=== PATIENT | female | born 1945 | race Caucasian/White ===

== ENCOUNTER 2018-02-16 20:34 | Emergency (ER) | payer OTHER, MEDICAID ==
--- NOTE | 2018-02-16 21:00 | ED Physician Chart ---
ED Chief Complaint/HPI - Patient Information Date Seen:: 02/16/18 Time Seen:: 21:00 Chief Complaint:: Chest pain History of Present Illness:: 73 yo female had history of hypertension and hyperlipidemia, previous episodes of mid chest pain with most recent episode occurred 15 days ago. Patient had mostly seen her primary care physician for chest pain. Patient saw a pile driver engineer for the chest pain a year ago but no stress test was done. About 2 hours prior to this ER visit, patient developed left chest pain when watching TV. Patient also felt chest pressure and shortness of breath. Patient was brought by daughter to [facility] ER. On arrival, patient had chest pain (11/16) in an intermittent mild chest jolting fashion. Patient stated that the chest pain also radiated to left neck and left shoulder. Patient had history of being non-compliant with medication. Allergies:: Allergies Allergy/AdvReac Type Severity Reaction Status Date / Time No Known Allergies Allergy Verified 02/16/18 20:46 Vitals:: Vital Signs - 8 hr 02/16/18 20:35 Temp 97.9 F HR 84 RR 18 BP 132/83 O2 Sat % 99 ED Review of Systems - Review of Systems General/Constitutional: Fever, No chills Skin: No rash Head: Headache Eyes: No pain ENT: No nasal drainage Neck: Neck pain Cardio Vascular: Chest pain, Palpitations Pulmonary: SOB GI: Nausea, No vomiting Musculoskeletal: Bone or joint pain Neurological: No syncope, No focal symptoms, Dizziness ED Past Medical History - Past Medical History Past Medical History: HTN, DM, Dyslipidemia Social History: Non Smoker, No Alcohol, No Drug Use Surgical History: Appendectomy Family Medical History - Family Member Mother History Unknown: Yes Ethnicity: ED Physical Exam - Physical Examination General/Constitutional: Awake, Alert Head: Atraumatic Eyes: PERRL, EOMI Skin: No skin lesions ENMT: Nasal exam nl Neck: No nuchal rigidity Respiratory: Clear to Auscultation, No Wheeze/Rhonchi/Rales Cardio Vascular: RRR, No murmur, gallop, rubs, NL S1 S2 GI: No tenderness/rebounding/guarding Extremities: normal strength in all extremities Neuro/Psych: No focal deficits ED Labs/Radiology/EKG Results - Lab Results Results: Laboratory Last Values WBC 6.3 Th/cmm (4.8-10.8) 02/16/18 20:45 RBC 5.24 Mil/cmm (3.80-5.20) H 02/16/18 20:45 Hgb 14.3 gm/dL (12-16) 02/16/18 20:45 Hct 43.3 % (41.0-60) 02/16/18 20:45 MCV 82.6 fl (81-100) 02/16/18 20:45 MCH 27.3 pg (27.0-31.0) 02/16/18 20:45 MCHC Differential 33.1 pg (28.0-36.0) 02/16/18 20:45 RDW 13.4 % (11.5-20.0) 02/16/18 20:45 Plt Count 220 Th/cmm (150-400) 02/16/18 20:45 MPV 10.6 fl 02/16/18 20:45 Neutrophils % 65.5 % (40.0-80.0) 02/16/18 20:45 Lymphocytes % 28.3 % (20.0-50.0) 02/16/18 20:45 Monocytes % 4.9 % (2.0-10.0) 02/16/18 20:45 Eosinophils % 0.8 % (0.0-5.0) 02/16/18 20:45 Basophils % 0.5 % (0.0-2.0) 02/16/18 20:45 PT 9.3 SECONDS (9.5-11.5) L 02/17/18 00:40 INR 0.88 (0.5-1.4) 02/17/18 00:40 PTT (Actin FS) 25.9 SECONDS (26.0-38.0) L 02/17/18 00:40 D-Dimer < 100 ng/mL (100-400) L 02/17/18 00:40 Sodium 131 mEq/L (136-145) L 02/16/18 20:45 Potassium 4.1 mEq/L (3.5-5.1) 02/16/18 20:45 Chloride 98 mEq/L (98-107) 02/16/18 20:45 Carbon Dioxide 21.0 mEq/L (21.0-31.0) 02/16/18 20:45 Anion Gap 16.1 (7.0-16.0) H 02/16/18 20:45 BUN 13 mg/dL (7-25) 02/16/18 20:45 Creatinine 0.8 mg/dL (0.6-1.2) 02/16/18 20:45 Est GFR ( Amer) TNP 02/16/18 20:45 Est GFR (Non-Af Amer) TNP 02/16/18 20:45 BUN/Creatinine Ratio 16.3 02/16/18 20:45 Glucose 565 mg/dL (70-105) H* 02/16/18 20:45 POC Glucose 391 MG/DL (70 - 105) H 02/16/18 22:18 Calcium 9.3 mg/dL (8.6-10.3) 02/16/18 20:45 Total Bilirubin 0.3 mg/dL (0.3-1.0) 02/16/18 20:45 AST 12 U/L (13-39) L 02/16/18 20:45 ALT 16 U/L (7-52) 02/16/18 20:45 Alkaline Phosphatase 106 U/L (34-104) H 02/16/18 20:45 Creatine Kinase 75 U/L (30-223) 02/16/18 20:45 Troponin I < 0.01 ng/mL (0.01-0.05) L 02/17/18 01:45 B-Natriuretic Peptide 7.3 pg/mL (5.0-100.0) 02/16/18 22:30 Total Protein 7.0 gm/dL (6.0-8.3) 02/16/18 20:45 Albumin 4.0 gm/dL (3.7-5.3) 02/16/18 20:45 Globulin 3.0 gm/dL 02/16/18 20:45 Albumin/Globulin Ratio 1.3 (1.0-1.8) 02/16/18 20:45 Triglycerides 793 mg/dL (<150) H 02/16/18 20:45 Cholesterol 216 mg/dL (<200) H 02/16/18 20:45 LDL Cholesterol Direct 88 mg/dL (75-193) 02/16/18 20:45 HDL Cholesterol 32 mg/dL (23-92) 02/16/18 20:45 Urine Source CLEAN C 02/16/18 23:18 Urine Color YELLOW 02/16/18 23:18 Urine Clarity CLEAR (CLEAR) 02/16/18 23:18 Urine pH 6.0 (4.6 - 8.0) 02/16/18 23:18 Ur Specific [place] <= 1.005 (1.005-1.030) 02/16/18 23:18 Urine Protein NEGATIVE mg/dL (NEGATIVE) 02/16/18 23:18 Urine Glucose (UA) >=1000 mg/dL (NEGATIVE) H 02/16/18 23:18 Urine Ketones NEGATIVE mg/dL (NEGATIVE) 02/16/18 23:18 Urine Blood NEGATIVE (NEGATIVE) 02/16/18 23:18 Urine Nitrate NEGATIVE (NEGATIVE) 02/16/18 23:18 Urine Bilirubin NEGATIVE (NEGATIVE) 02/16/18 23:18 Urine Urobilinogen 0.2 E.U./dL (0.2 - 1.0) 02/16/18 23:18 Ur Leukocyte Esterase NEGATIVE (NEGATIVE) 02/16/18 23:18 Urine RBC 0-2 /hpf (0-5) 02/16/18 23:18 Urine WBC 0-2 /hpf (0-5) 02/16/18 23:18 Ur Epithelial Cells OCCASIONAL /lpf (FEW) 02/16/18 23:18 Urine Bacteria OCCASIONAL /hpf (NONE SEEN) 02/16/18 23:18 - Radiology Results Results: CXR: no cardiomegaly, no focal consolidation, interpreted by me. - EKG Interpretations EKG Time:: 20:37 Rate & Rhythm: 82 bpm, sinus rhythm [place]: normal P axis Intervals: normal inervals Comments:: Nonspecific T wave abnormalities. Abnormal EKG. Interpreted by me ED Assessment - Assessment General Assessment: Chest pain (Troponin 0.01) Hyponatremia Hyperglycemia DM II Hypertriglyceridemia Hypertension Assessment/Comments:: CBC, CMP, Trop I, CK, PT/PTT, D-Dimer CXR, EKG Aspirin 325mg PO Nitroglycerin 0.4mg SL Morphine 2mg IV IVF with NS 1L IV bolus Spoke with Dr. Dai from [facility] around 10:30PM who recommended a repeat Troponin and EKG. ED Septic Shock - . Is Septic Shock (SBP<90, OR Lactate>4 mmol\L) present?: No - <6hrs of presentation: Vital Signs: Vital Signs - 8 hr 02/16/18 20:35 Temp 97.9 F HR 84 RR 18 BP 132/83 O2 Sat % 99 ED Reassessment (Disposition) - Reassessment Reassessment:: Patient had minimal chest pain 2/10 for 2 hours. Chest pain reoccurred for 1 hour, to level of 5/10. Six hours repeat Troponin < 0.01, EKG showed similar pattern with nonspecific T wave changes and slower HR, 61 bpm. Patient's vital signs were stable. Around 3:30AM, I spoke with Dr. Morris who agreed to accepted patient to telemetry at [facility]. Reassessment Condition:: Improved - Patient Disposition Discharge/Transfer:: Acute Care (other hosp) Accepting Physician:: Dr. Morris Transport Method:: ACLS Admitted to:: Telemetry Condition at Disposition:: Stable
[2018-02-16 21:05] LABS: % EOSINOPHILS 0.8 % (0.0-5.0); HEMOGLOBIN 14.3 gm/dL (12-16); MEAN PLATELET VOLUME 10.6 fl; NEUTROPHILE ABSOLUTE 4.1 Th/cmm (1.8-8.0)
[2018-02-16] MEDS: INSULIN HUMAN REGULAR 100 UNITS/ML UNIT SUBQ ONE (21:05)
[2018-02-16] MEDS ORDERED: INSULIN HUMAN REGULAR 100 UNITS/ML UNIT ONE (21:06)
[2018-02-16 21:07] LABS: % BASOPHILS 0.5 % (0.0-2.0); % LYMPHOCYTES 28.3 % (20.0-50.0); % MONOCYTES 4.9 % (2.0-10.0); % NEUTROPHILS 65.5 % (40.0-80.0); EOSINOPHILE ABSOLUTE 0.1 Th/cmm (0.1-0.4); HEMATOCRIT 43.3 % (41.0-60); LYMPHOCYTE ABSOLUTE 1.8 Th/cmm (1.5-3.0); MEAN CELL VOLUME 82.6 fl (81-100); MEAN CORPUSCULAR HEMOGLOBIN 27.3 pg (27.0-31.0); MEAN CORPUSCULAR HGB CONC 33.1 pg (28.0-36.0); MONOCYTE ABSOLUTE 0.3 Th/cmm (0.3-1.0); PLATELET COUNT 220 Th/cmm (150-400); RED BLOOD COUNT 5.24 Mil/cmm (3.80-5.20); RED CELL DISTRIBUTION WIDTH 13.4 % (11.5-20.0); WHITE BLOOD COUNT 6.3 Th/cmm (4.8-10.8)
[2018-02-16] MEDS: Sodium Chloride 0.9% 1,000 ML IV ONE (21:12)
[2018-02-16 21:18] LABS: ALB/GLOB RATIO 1.3 (1.0-1.8); ALKALINE PHOSPHATASE 106 U/L (34-104); ANION GAP 16.1 (7.0-16.0); BILIRUBIN,TOTAL 0.3 mg/dL (0.3-1.0); BUN - UREA NITROGEN 13 mg/dL (7-25); CALCIUM SERUM 9.3 mg/dL (8.6-10.3); CHLORIDE 98 mEq/L (98-107); CHOLESTEROL 216 mg/dL (<200); CREATININE - SERUM 0.8 mg/dL (0.6-1.2); CREATININE KINASE 75 U/L (30-223); HDL -HIGH DENSITY LIPOPROTEIN 32 mg/dL (23-92); POTASSIUM SERUM 4.1 mEq/L (3.5-5.1); SGOT 12 U/L (13-39); SGPT/ALT 16 U/L (7-52); SODIUM SERUM 131 mEq/L (136-145); TRIGLYCERIDES 793 mg/dL (<150)
[2018-02-16 21:19] LABS: GLUCOSE 565 mg/dL (70-105)
[2018-02-16] MEDS ORDERED: Morphine Sulfate 2 mg/mL 1mL Syr ONE (21:58)
[2018-02-16] MEDS: Morphine Sulfate 2 mg/mL 1mL Syr IVP STA (21:58)
[2018-02-16 23:29] LABS: URINE SOURCE CLEAN C
[2018-02-16 23:32] LABS: URINE BILIRUBIN NEGATIVE (NEGATIVE); URINE BLOOD NEGATIVE (NEGATIVE); URINE GLUCOSE (UA) >=1000 mg/dL (NEGATIVE); URINE KETONE NEGATIVE (NEGATIVE); URINE LEUKOCYTE ESTERASE NEGATIVE (NEGATIVE); URINE MICROSCOPIC INDICATED? YES; URINE NITRATE NEGATIVE (NEGATIVE); URINE PROTEIN NEGATIVE (NEGATIVE); URINE UROBILINOGEN 0.2 E.U./dL (0.2 - 1.0)
[2018-02-17 00:13] LABS: URINE CLARITY CLEAR (CLEAR); URINE COLOR YELLOW
[2018-02-17 00:15] LABS: URINE BACTERIA OCCASIONAL /hpf (NONE SEEN); URINE EPITHELIAL CELLS OCCASIONAL /lpf (FEW); URINE RBC 0-2 /hpf (0-5); URINE WBC 0-2 /hpf (0-5)
[2018-02-17 00:25] LABS: INR 0.88 (0.5-1.4); PROTHROMBIN TIME (TEST) 9.3 SECONDS (9.5-11.5)
[2018-02-17] MEDS: Sodium Chloride 0.9% 1,000 ML IV ONE (01:33)
--- NOTE | 2018-02-17 08:54 | Diagnostic Imaging Report ---
Portable chest x-ray HISTORY: Pain The heart size is normal. Atherosclerotic calcification seen in the tortuous thoracic aorta. No focal pulmonary processes. No hilar or mediastinal abnormalities. IMPRESSION: 1. No acute abnormalities 2. Atherosclerotic vascular changes
== END 2018-02-17 07:30 | disposition short-term general hospital (02) ==
LOC: ER 20:34
DX: R07.89 Other chest pain (principal); E87.1 Hypo-osmolality and hyponatremia; E11.65 Type 2 diabetes mellitus with hyperglycemia; I10 Essential (primary) hypertension; E78.1 Pure hyperglyceridemia; Z90.49 Acquired absence of other specified parts of digestive tract
CPT/HCPCS: 99285; 96361; 96372; 96374; 96375; 93005 ×2; 71045; 84484 ×2; 83880; 36415 ×2; 36416 ×3; 85379; 82948 ×3; 85025; 85610; 81001; 82550; 82947; 83036; 80053; 80061; C9113; J2270; J1815; 81003-TC